=== PATIENT | male | born 1995 | race Hispanic/Latino ===

== ENCOUNTER 2017-06-23 21:06 | Emergency (ER) | payer BC, OTHER ==
[2017-06-23 21:06] VITALS: BMI 26.2
[2017-06-23 21:56] VITALS: BP 152/98; PULSE 108; RESP 18; TEMP 98.4; O2SAT 99
[2017-06-23] MEDS ORDERED: Lidocaine 1% Inj (20ml) IJ ONE (22:03)
[2017-06-23] MEDS ORDERED: Lidocaine 1% Inj (20ml) ONE (22:05)
--- NOTE | 2017-06-23 23:21 | ED PDOC ---
Upper Extremity Pain/Injury Time Seen by Provider: 06/23/17 22:00 Chief Complaint (Nursing): Finger,Hand,&Wrist Chief Complaint (Provider): FINGER INJURY History Per: Patient (21 Y/O MALE HERE WITH LACERATION NOTED LEFT DISTAL INDEX FINGER WITH NEW CLEAN KNIFE. TETANUS UP TO DATE. DENIES ANY LOSS OF FUNCTION. INJURY OCCURRED 1 HOUR PRIOR TO ED ARRIVAL.) Past Medical History Reviewed: Historical Data, Nursing Documentation, Vital Signs Vital Signs: Last Vital Signs Temp 98.4 F 06/23/17 21:54 Pulse 108 H 06/23/17 21:54 Resp 18 06/23/17 21:54 BP 152/98 H 06/23/17 21:54 Pulse Ox 99 06/23/17 21:54 - Family History Family History: States: No Known Family Hx - Home Medications Home Medications: Ambulatory Orders Medication Instructions Recorded No Known Home Med 03/09/16 - Allergies Allergies/Adverse Reactions: Allergies Allergy/AdvReac Type Severity Reaction Status Date / Time No Known Allergies Allergy Verified 06/23/17 21:56 Review of Systems ROS Statement: Except As Marked, All Systems Reviewed And Found Negative Musculoskeletal: Positive for: Other (FINGER INJURY) Physical Exam - Reviewed Nursing Documentation Reviewed: Yes Vital Signs Reviewed: Yes - Physical Exam Appears: Positive for: Well, Non-toxic, No Acute Distress Head Exam: Positive for: ATRAUMATIC, NORMAL INSPECTION, NORMOCEPHALIC Skin: Positive for: Normal Color, Warm, DRY Eye Exam: Positive for: EOMI, Normal appearance, PERRL ENT: Positive for: Normal ENT Inspection Neck: Positive for: Normal, Painless ROM Cardiovascular/Chest: Positive for: Regular Rate, Rhythm Respiratory: Positive for: CNT, Normal Breath Sounds Gastrointestinal/Abdominal: Positive for: Normal Exam, Bowel Sounds, Soft Back: Positive for: Normal Inspection Extremity: Positive for: Normal ROM, Other (1.0 CM LACERATION VOLAR SURFACE OF DISTAL PHALANX OF INDEX FINGER LEFT HAND. ABLE TO FLEX AND EXTEND DIP/PIP WITHOUT DIFFICULTY.) Neurologic/Psych: Positive for: Alert, Oriented - ECG O2 Sat by Pulse Oximetry: 99 Disposition - Clinical Impression Clinical Impression: Finger laceration - Patient ED Disposition Is Patient to be Admitted: No - Disposition Disposition: Routine/Home Disposition Time: 23:24 Condition: FAIR Additional Instructions: F/U IN 7 DAYS FOR SUTURE REMOVAL. Instructions: Finger Laceration (ED) Forms: [employer] [place] ([place]), [facility]Work Excuse Procedure: Wound Repair - Time Performed Time Performed: 11:00 - Time Out Time Out: Site verified - Consent Obtained Consent obtained: Verbal - Performed by Performed by: Mid-level Provider - Indications Indication(s):: Laceration - Location Location:: Left Finger:: Index Shape:: Linear Dimensions Length cm: 1.0CM Depth:: Epidermis - Anesthetic Technique Anesthetic Technique: Regional block Local/Regional Anesthetic:: Lidocaine 1% - Irrigated Irrigated with ml of normal saline: 150ML - Complexity Complexity:: Simple (one layer) - Wound repair method Sutures:: # (FOUR), Size (5-0), Type (PROLENE), Technique (INTERRUPTED) - Patient tolerated procedure Patient Tolerated Procedure:: Well
== END 2017-06-23 23:30 | disposition home or self-care (01) ==
LOC: H.ER 21:06
DX: S61.211A Laceration without foreign body of left index finger without damage to nail, initial encounter (principal); W26.0XXA Contact with knife, initial encounter